=== PATIENT | female | born 1935 | race Caucasian/White ===

== ENCOUNTER 2016-09-03 09:00 | Outpatient (CLI) | payer MEDICARE, OTHER | END 2016-09-03 09:01 | disposition home or self-care (01) | DX: R74.8 Abnormal levels of other serum enzymes (principal) ==

== ENCOUNTER 2017-01-18 10:51 | Outpatient (CLI) | payer MEDICARE, OTHER ==
--- NOTE | 2017-01-19 07:37 | Mammography Report ---
DIGITAL BILATERAL DIAGNOSTIC MAMMOGRAM: 01/18/2017 CLINICAL HISTORY: An 81-year-old female who has a personal history of left breast cancer in 2011. P atient had a left lumpectomy, radiation, and chemotherapy. Patient does not have a family history of breast cancer. COMPARISON: 07/07/2009, 07/08/2010, 07/07/2011, 07/19/2011, 07/28/2011, 03/10/2012, 09/15/2012, 03/04, 09/10/2013, 12/19/2014, 12/29/2015 TECHNIQUE: Craniocaudad and oblique lateral views of each breast were obtained with Moped Full Fie ld digital mammography. A mediolateral view of the left breast was done to compliment the exam. Als o, bilateral axillary exaggerated craniocaudad views were obtained. FINDINGS: Mildly heterogeneously dense breasts are noted bilaterally. Multiple surgical clips are n oted in the upper outer quadrant of the left breast related to patient's known left lumpectomy. Ther e is a small metallic marker seen in the 2 o'clock position of the anterior aspect of the left breast related to a minimally invasive biopsy. Extensive vascular calcification is noted in the breast. No significant clusters of calcification are seen. No significant masses are noted. No significant change is seen as compared to recent mammograms. IMPRESSION: 1. PAST HISTORY OF LEFT LUMPECTOMY WITH AXILLARY NODE DISSECTION. 2. BREASTS APPEAR RADIOGRAPHICALLY BENIGN. BIRADS CATEGORY 2 - BENIGN. RECOMMENDATIONS: Annual bilateral screening mammography. COMMENT: Patient was given a written form indicating that the present exam showed no significant abn ormality. STANDARD QUALIFYING STATEMENTS 1. This examination was reviewed with the aid of Computer-Aided Detection (CAD). 2. A negative or benign imaging report should not delay biopsy if clinically suspicious findings are present. Consider surgical consultation if warranted. More than 5% of cancers are not identified by i maging. 3. Dense breasts may obscure an underlying neoplasm. 14:9:35 JOB #: [id number] EXT JOB #:[id number]
== END 2017-01-18 10:52 | disposition home or self-care (01) ==
LOC: DI 10:51
PROVIDERS: ATTEND Internal Medicine Hematology & Oncology
DX: C50.912 Malignant neoplasm of unspecified site of left female breast (principal); Z80.3 Family history of malignant neoplasm of breast
CPT/HCPCS: 77066

== ENCOUNTER 2018-08-29 14:59 | Outpatient (CLI) | payer MEDICARE, OTHER ==
--- NOTE | 2018-08-30 09:04 | Mammography Report ---
Reason: SCREENING MAMMO Procedure Date: 08/29/2018 Accession Number: [id number] / [id number] Procedure: MARLA - Screening Mammo w/Florentino CPT Code: FULL RESULT: EXAM: Screening Mammo w/Florentino DATE: 08/29/2018 3:42 PM CLINICAL HISTORY: Screening encounter. Personal history of left breast cancer status post lumpectomy and radiation in 2011. TECHNIQUE: Bilateral CC and MLO views were obtained. COMPARISON: None FINDINGS: The breasts demonstrate heterogeneously dense fibroglandular parenchyma bilaterally. Posttreatment changes are stable in the left breast. There are typically benign vascular calcifications. No suspicious masses, clustered microcalcifications, or regions of architectural distortion are identified. IMPRESSION: Benign findings RECOMMENDATION: Routine annual screening unless otherwise clinically indicated. BIRADS CATEGORY 2: Benign findings STANDARD QUALIFYING STATEMENTS: 1. This examination was not reviewed with the aid of Computer-Aided Detection (CAD). 2. A negative or benign imaging report should not delay biopsy if clinically suspicious findings are present. Consider surgical consultation if warrented. More than 5% of cancers are not identified by imaging. 3. Dense breasts may obscure an underlying neoplasm. 4. This examination was reviewed with the aid of 3D breast imaging (tomosynthesis).
== END 2018-08-29 15:00 | disposition home or self-care (01) ==
LOC: DI 14:59
PROVIDERS: ATTEND Family Medicine
DX: Z12.31 Encounter for screening mammogram for malignant neoplasm of breast (principal); Z85.3 Personal history of malignant neoplasm of breast
CPT/HCPCS: 77063; 77067

== ENCOUNTER 2018-09-11 21:02 | Outpatient (CLI) | payer MEDICARE, OTHER ==
--- NOTE | 2018-09-12 00:56 | Ultrasound Report ---
Reason: OTHER SPECIFIED DISEASES OF PANCREAS, ABN WEIGHT L Procedure Date: 09/11/2018 Accession Number: [id number] / [id number] Procedure: US - Abdomen Complete CPT Code: FULL RESULT: EXAM: ABDOMEN ULTRASOUND EXAM DATE: 09/11/2018 09:08 PM. CLINICAL HISTORY: OTHER SPECIFIED DISEASES OF PANCREAS, ABN WEIGHT L. COMPARISON: ABDOMEN COMPLETE 09/03/2016 9:31 AM. TECHNIQUE: Real-time scanning was performed with static images obtained. FINDINGS: Liver: 2 cm left lobe cyst. No solid lesion. The liver measures 12 cm. Main portal vein flow: Hepatopetal. Gallbladder: Normal. No stones, wall thickening, or sonographic Hamilton's sign. Biliary System: Common bile duct measures 5 mm. No intrahepatic or extrahepatic ductal dilatation. Pancreas: Predominantly obscured by bowel gas. Kidneys: Right: 9.5 cm longitudinally. 2.4 cm cortical cyst. No solid renal lesion. No hydronephrosis. Left: 9.3 cm longitudinally. Nonobstructing 6 mm calculus, stable. No solid renal lesion. Spleen: 7.6 cm. Normal in size and echotexture. Aorta and Inferior Vena Cava: Unremarkable. Other: None. IMPRESSION: No significant interval change. Incidental hepatic and renal cysts. Nonobstructing left renal calculus. RADIA
== END 2018-09-11 21:03 | disposition home or self-care (01) ==
LOC: DI 21:02
PROVIDERS: ATTEND Family Medicine
DX: N20.0 Calculus of kidney (principal); R74.8 Abnormal levels of other serum enzymes; R63.4 Abnormal weight loss; K86.89 Other specified diseases of pancreas
CPT/HCPCS: 76700

== ENCOUNTER 2019-05-04 15:40 | Emergency (ER) | payer MEDICARE, OTHER ==
--- NOTE | 2019-05-04 16:35 | ED Physician Documentation ---
History of Present Illness - Stated complaint Stated Complaint: RT LEG AND HIP JOINT PAIN - Chief complaint Chief Complaint: Ext Problem - Additonal information Additional information: This is an 83-year-old female with a history of dementia and osteoporosis who presents with right hip pain and pelvis pain. She is a poor memory and she does not remember falling but cannot say for sure. She typically is independently ambulatory. She noticed some pain this morning and she the pain is located over the lateral side of her hip and radiates towards the groin. She has had progressive difficulty walking on until the day. She denies any fever, back pain, head pain. Review of Systems Constitutional: denies: Fever Cardiac: denies: Chest pain / pressure Respiratory: denies: Dyspnea GI: denies: Abdominal Pain : denies: Dysuria Skin: denies: Rash Musculoskeletal: reports: Extremity pain, Joint pain PD PAST MEDICAL HISTORY - Past Medical History Cardiovascular: Hypertension, High cholesterol Musculoskeletal: Osteoporosis - Past Surgical History Past Surgical History: Yes General: Appendectomy - Present Medications Home Medications: Ambulatory Orders Medication Instructions Recorded Confirmed Calcium [Calcio Calvin] 500 mg PO DAILY 01/06/13 12/08/16 Lisinopril [Prinivil] 5 mg PO DAILY 01/06/13 12/08/16 Lovastatin 10 mg PO DAILY 01/06/13 12/08/16 Ascorbate Calcium [Vitamin C] 500 mg PO DAILY 04/02/13 12/08/16 Glucosamine HCl/Vitamin D3 1 each PO DAILY 04/02/13 12/08/16 [Glucosamine Plus Vitamin D Tab] Letrozole 2.5 mg PO DAILY 04/02/13 12/08/16 Memantine HCl [Namenda] 10 mg PO DAILY 04/02/13 12/08/16 Multivit-Min/FA/Lycopene/Lut 1 each PO DAILY 04/02/13 12/08/16 [Centrum Silver Tablet] - Allergies Allergies/Adverse Reactions: Allergies Allergy/AdvReac Type Severity Reaction Status Date / Time seafood Allergy Rash Uncoded 05/04/19 15:49 - Social History Does the pt smoke?: No Smoking Status: Never smoker Does the pt drink ETOH?: Yes Does the pt have substance abuse?: No - Immunizations Immunizations are current?: Yes - POLST Patient has POLST: No PD ED PE NORMAL - Vitals Vital signs reviewed: Yes - General General: No acute distress - HEENT HEENT: Atraumatic - Neck Neck: Supple, no meningeal sign - Cardiac Cardiac: RRR - Respiratory Respiratory: No respiratory distress - Abdomen Abdomen: Soft, Non tender, Non distended - Extremities Extremities: Other (No gross deformity, patient is tender over the greater troc hanter as well as the proximal femur. Range of motion of the right hip causes pain. Distal strength, pulses, and sensation are intact. Leg is warm and well- perfused.) - Neuro Neuro: Other (Awake, alert, conversant, able to tell me his some history, but her memory is fairly poor.) - Psych Psych: Normal mood, Normal affect Results - Vitals Vitals: Oxygen O2 Source Room air - Labs Labs: Laboratory Tests 05/04/19 05/04/19 05/04/19 16:55 16:55 16:55 WBC 8.8 RBC 3.97 L Hgb 12.5 Hct 38.1 MCV 96.0 MCH 31.5 H MCHC 32.8 RDW 13.1 Plt Count 356 MPV 9.7 Neut # (Auto) 5.9 Lymph # (Auto) 1.6 [place] # (Auto) 0.8 Eos # (Auto) 0.3 Baso # (Auto) 0.1 Absolute Nucleated RBC 0.00 Nucleated RBC % 0.0 PT 11.8 INR 1.0 Sodium 140 Potassium 4.1 Chloride 103 Carbon Dioxide 27 Anion Gap 10.0 BUN 34 H Creatinine 1.8 H Estimated GFR (MDRD) 27 L Glucose 124 H Calcium 9.1 Total Bilirubin 0.8 AST 23 ALT 14 Alkaline Phosphatase 59 Total Protein 7.9 Albumin 4.2 Globulin 3.7 Albumin/Globulin Ratio 1.1 Lipase 56 H - Rads (name of study) US RLE Radiology: Other CT pelvis WO Radiology: Other (No fracture. Osteopenia) XR knee Radiology: Other (No fracture) PD MEDICAL DECISION MAKING - ED course Complexity details: considered differential (fracture, contusion, arthritis, ischemia, dislocation) ED course: Pt's initial presentation most concerning for fracture. CT of the pelvis and XR of the knee show no fracture. DVT study negative. Leg is warm, well-perfused, and pulses are symmetric. On repeat evaluation she is able to ambulate independently with mild pain in her hip. Labs are notable for creatinine of 1.8, her baseline is in the low 1s. She is able to hydrate PO, denies urinary symptoms, and her pain is clearly in her lower right extremity, she has no abdominal pain or tenderness. No signs of rhabdomyolysis on exam. Given she is ambulating quite well, I have a low suspicion for occult fracture but discussed that if her pain is worsening or she is unable to ambulate, she needs and MRI. I also discussed the need for adequate hydration and PCP follow up within the week for follow up on her creatinine. Pt and her son agree and she was discharged home. Departure - Departure Disposition: Home, Self Care Clinical Impression: Hip pain Qualifiers: Laterality: right Qualified Code(s): M25.551 - Pain in right hip Condition: Good Follow-Up: Corey Pham MD [Primary Care Provider] - Comments: You were seen today for pain in your right hip and leg. Our scans did not show signs of blood clots, fractures, or other obvious causes of your pain. Occasionally the CT scan will not rock picker on a very small fracture, so if your pain is worsening or you are not able to walk on your leg, you will need an MRI. If you develop any fever, shortness of breath, or other concerning symptoms please return to the emergency department. Otherwise please follow-up with your primary care provider. Your kidney function was a little low today, please make sure you are drinking adequate fluids, and have this rechecked with your primary care provider (Creatinine was 1.8 today). Discharge Date/Time: 05/04/19 22:37
[2019-05-04] MEDS ORDERED: MORPHINE 2 MG/ML CARPUJECT IVP STA ×2 (16:39→18:22)
[2019-05-04] MEDS ORDERED: ONDANSETRON 4 MG/2 ML VIAL IVP STA (16:41)
[2019-05-04 17:10] LABS: BASOPHILS # (AUTO) 0.1 10^3/uL (0.0-0.1); BASOPHILS % (AUTO) 1.5 %; EOSINOPHILS # (AUTO) 0.3 10^3/uL (0.0-0.7); EOSINOPHILS % (AUTO) 3.8 %; HGB - HEMOGLOBIN 12.5 g/dL (12.0-16.0); LYMPHOCYTES # (AUTO) 1.6 10^3/uL (1.5-3.5); LYMPHOCYTES % (AUTO) 18.7 %; MEAN CORPUSCULAR HEMOGLOBIN 31.5 pg (27.0-31.0); MEAN CORPUSCULAR HGB CONC 32.8 g/dL (32.0-36.0); MEAN PLATELET VOLUME 9.7 fL (7.9-10.8); MONOCYTES # (AUTO) 0.8 10^3/uL (0.0-1.0); NEUTROPHILS # (AUTO) 5.9 10^3/uL (1.5-6.6); NEUTROPHILS % (AUTO) 66.5 %; PLT - PLATELET COUNT 356 10^3/uL (130-450); RED BLOOD COUNT 3.97 10^6/uL (4.20-5.40); RED CELL DISTRIBUTION WIDTH 13.1 % (12.0-15.0); WHITE BLOOD COUNT 8.8 x10^3/uL (4.8-10.8)
[2019-05-04 17:19] LABS: PT - PROTHROMBIN TIME 11.8 secs (9.9-12.6)
[2019-05-04 17:25] LABS: ALBUMIN 4.2 g/dL (3.2-5.5); ALBUMIN/GLOBULIN RATIO 1.1 (1.0-2.2); BILIRUBIN,TOTAL 0.8 mg/dL (0.2-1.0); CALCIUM 9.1 mg/dL (8.5-10.3); CREATININE 1.8 mg/dL (0.4-1.0); TOTAL PROTEIN 7.9 g/dL (6.7-8.2)
--- NOTE | 2019-05-04 18:26 | CT Report ---
Reason: R hip and pelvis pain Procedure Date: 05/04/2019 Accession Number: [id number] / [id number] Procedure: CT - PELVIS WO CPT Code: Final Report FULL RESULT: EXAM: CT BONY PELVIS WITHOUT CONTRAST EXAM DATE: 05/04/2019 05:40 PM. CLINICAL HISTORY: Right hip and pelvis pain after ground-level fall. COMPARISON: None. TECHNIQUE: Thin-section axial images were acquired of the pelvis without contrast. Post-processing: Coronal and sagittal reformats. Other: None. In accordance with CT protocol optimization, one or more of the following dose reduction techniques were utilized for this exam: automated exposure control, adjustment of mA and/or KV based on patient size, or use of iterative reconstructive technique. FINDINGS: Bones: No fractures. Facet osteoarthritis is in the lumbar spine. Moderate osteopenia limits evaluation for subtle bony abnormalities. Sacroiliac Joints: No widening, erosions, or sclerosis. Symphysis Pubis: Unremarkable. Right Hip: Moderate osteophyte formation is accompanied by mild medial joint space narrowing. Articular cartilage calcification is present. Left Hip: Moderate osteophyte formation left hip joint is accompanied by mild medial joint space narrowing. Articular cartilage calcification is present. Musculature: Normal. No fatty atrophy. Pelvic Cavity: A 2.2 cm simple cyst is in the right kidney. Arterial calcifications indicate atherosclerosis.. Other: No lymphadenopathy. No free air or free fluid. The other visualized soft tissues are unremarkable. IMPRESSION: 1. Moderate bilateral hip joint osteoarthritis. 2. No acute fractures by radiographs or by CT. Note that osteopenia limits evaluation for trabecular fractures by CT. If the patient cannot ambulate, MRI is recommended to exclude occult fracture. RADIA
--- NOTE | 2019-05-04 20:47 | XRAY Report ---
Reason: R leg pain and swelling Procedure Date: 05/04/2019 Accession Number: [id number] / [id number] Procedure: XR - Knee 3 View RT CPT Code: Final Report FULL RESULT: EXAM: RIGHT KNEE RADIOGRAPHY EXAM DATE: 05/04/2019 08:22 PM. CLINICAL HISTORY: R leg pain and swelling. COMPARISON: KNEE 3 VIEW RT 10/22/2013 8:29 AM. TECHNIQUE: 3 views. FINDINGS: Bones: Normal. No fractures or bone lesions. Joints: Moderate/tricompartmental degenerative changes of right knee joint. A small right knee joint effusion noted. Soft Tissues: Normal. No soft tissue swelling. IMPRESSION: Tricompartmental degenerative changes of right knee joint. No acute displaced fracture or malalignment. RADIA
--- NOTE | 2019-05-04 22:10 | Ultrasound Report ---
Reason: R leg pain and swelling Procedure Date: 05/04/2019 Accession Number: [id number] / [id number] Procedure: US - Duplex Ext Veins Right CPT Code: Final Report FULL RESULT: EXAM: RIGHT LOWER EXTREMITY VENOUS ULTRASOUND EXAM DATE: 05/04/2019 09:44 PM. CLINICAL HISTORY: Leg pain and swelling COMPARISON: None. TECHNIQUE: Real-time sonographic vascular imaging was performed by the ash worker through the lower extremity utilizing both color-flow and Doppler spectral analysis. Multiple financial service representative static images were saved for review. FINDINGS: Common Femoral Vein (CFV): Normal. CFV-GSV Junction: Normal. Profunda Femoral Vein (PFV): Normal. Femoral Vein (FV) Prox: Normal. Femoral Vein (FV) Mid: Normal. Femoral Vein (FV) Dist: Normal. Popliteal Vein: Normal. Posterior Tibial Veins: Visualized portions within normal limits. Peroneal Veins: Visualized portions within normal limits. Other: There is a popliteal fossa region cyst measuring 2.3 x 2.8 x 2.0 cm. IMPRESSION: No evidence for deep venous thrombosis. RADIA
[2019-05-04 22:37] VITALS: BP 160/104
== END 2019-05-04 22:37 | disposition home or self-care (01) ==
LOC: ED 15:40
DX: M25.551 Pain in right hip (principal); I10 Essential (primary) hypertension; E78.00 Pure hypercholesterolemia, unspecified; M81.0 Age-related osteoporosis without current pathological fracture
CPT/HCPCS: 36415; 72192; 80053; 83690; 85025; 85610; 96374; 96376; 99282

== ENCOUNTER 2020-01-20 10:54 | Outpatient (CLI) | payer MEDICARE, OTHER ==
--- NOTE | 2020-01-23 07:07 | XRAY Report ---
PROCEDURE: Knee 3 View RT INDICATIONS: RIGHT KNEE PAIN TECHNIQUE: 3 views of the right knee(s) were acquired. COMPARISON: 05/04/2019, 10/22/2013 FINDINGS: Bones: No fractures or dislocations. No suspicious bony lesions. There is moderate lateral femorotibial joint space narrowing, with associated degenerative change wit h subchondral sclerosis and osteophyte formation. Milder degenerative changes are seen medially. On t he sunrise view, there is moderate lateral patellofemoral joint space narrowing, with associated tomasa deling changes, including spurs along the margins of the patella. Soft tissues: There is a moderate joint effusion. Calcification is seen along the joint line, which i s attributed to meniscal calcification. IMPRESSION: Right knee osteoarthritic degenerative changes are seen, which are overall most prominen t involving the lateral femoral tibial compartment. There is a moderate joint effusion seen. The degenerative changes have progressed over time. Reviewed by: Cezar Lehman MD on 01/20/2020 10:46 AM VIKAS Approved by: Cezar Lehman MD on 01/20/2020 10:46 AM VIKAS Station ID: [id number]
== END 2020-01-20 10:55 | disposition home or self-care (01) ==
LOC: DI 10:54
PROVIDERS: ATTEND Family Medicine
DX: M17.11 Unilateral primary osteoarthritis, right knee (principal)

== ENCOUNTER 2020-02-21 15:51 | Outpatient (CLI) | payer MEDICARE, OTHER | END 2020-02-21 15:52 | disposition critical access hospital (66) | LOC: EMS 15:51 | PROVIDERS: ATTEND Surgery | DX: R45.1 Restlessness and agitation (principal) | CPT/HCPCS: A0425; A0429 ==

== ENCOUNTER 2021-02-05 07:00 | Outpatient (CLI) | payer MEDICARE, OTHER ==
--- NOTE | 2021-02-05 15:13 | XRAY Report ---
PROCEDURE: Knee 4 View RT INDICATIONS: KNEE PAIN, RIGHT TECHNIQUE: 4 views of the right knee were acquired. COMPARISON: Right knee radiographs 01/20/2020. FINDINGS: Bones: No acute fractures or dislocations. No suspicious bony lesions. Severe joint space narrowin g at the lateral femorotibial compartments with subchondral sclerosis and marginal osteophyte formati on. Mild to moderate joint space narrowing is seen in the anterior compartment. Soft tissues: Small to moderate joint effusion. No suspicious soft tissue calcifications. Atheroscl erotic vascular calcifications are present. IMPRESSION: Severe osteoarthrosis of the right lateral femorotibial compartment. Small to moderate r ight knee effusion. Reviewed by: Alex Martinez MD on 02/05/2021 3:12 PM PDT Approved by: Alex Martinez MD on 02/05/2021 3:12 PM PDT Station ID: [id number]
== END 2021-02-05 23:59 | disposition home or self-care (01) ==
LOC: DI.N 07:00
PROVIDERS: ATTEND Orthopaedic Surgery
DX: M17.11 Unilateral primary osteoarthritis, right knee (principal); M25.461 Effusion, right knee

== ENCOUNTER 2022-11-09 08:09 | Emergency (ER) | payer MEDICARE, OTHER ==
--- NOTE | 2022-11-09 08:43 | ED Physician Documentation ---
History of Present Illness - Stated complaint Stated Complaint: ALOC/FOUND DOWN - Chief complaint Chief Complaint: Neuro - Additonal information Additional information: Patient 87-year-old female with known history of dementia coming from [facility]. Report per EMS as patient was noted to be in her bed at 07 100, found on the side of her bed at 07 15. Staff reported decreased level of awareness. Patient known history of dementia. At this time alert and orientated to self only. Further history limited by her dementia. EMS did report that the family consented for an ED evaluation. Review of Systems Unable to obtain: Dementia PD PAST MEDICAL HISTORY - Past Medical History Cardiovascular: Hypertension, High cholesterol Neuro: Dementia Musculoskeletal: Osteoporosis - Past Surgical History Past Surgical History: Yes General: Appendectomy - Present Medications Home Medications: Ambulatory Orders Medication Instructions Recorded Confirmed Memantine HCl [Namenda] 5 mg PO DAILY 04/02/13 11/09/22 Acetaminophen [Tylenol] 1,000 mg PO TID 11/09/22 11/09/22 Albuterol Sulf [Ventolin Hfa 2 puffs INH Q4HR PRN 11/09/22 11/09/22 Inhaler] Cetirizine [ZyrTEC] 10 mg PO DAILY PRN 11/09/22 11/09/22 Cholecalciferol (Vitamin D3) 50 mcg PO DAILY 11/09/22 11/09/22 [Vitamin D3] Cholestyramine [Questran] 4 gm PO DAILY PRN 11/09/22 11/09/22 Docusate Sodium [Dok] 50 mg PO DAILY 11/09/22 11/09/22 Hydrocortisone 1% Cream 1 applic TOP BID PRN 11/09/22 11/09/22 [Hydrocortisone] Magnesium Hydroxide [Milk of 2,400 mg PO QD PRN 11/09/22 11/09/22 Magnesia] Meloxicam [Mobic] 7.5 mg PO DAILY 11/09/22 11/09/22 QUEtiapine [SEROquel] 25 mg ORAL BID PRN 11/09/22 11/09/22 QUEtiapine [SEROquel] 50 mg PO DAILY 11/09/22 11/09/22 Quetiapine Fumarate [Seroquel] 75 mg PO DAILY PM 11/09/22 11/09/22 Rivastigmine [Exelon 13.3MG] 1 each TD DAILY 11/09/22 11/09/22 Senna [Senokot] 8.6 mg PO DAILY 11/09/22 11/09/22 amLODIPine [Norvasc] 5 mg PO DAILY 11/09/22 11/09/22 - Allergies Allergies/Adverse Reactions: Allergies Allergy/AdvReac Type Severity Reaction Status Date / Time seafood Allergy Rash Uncoded 11/09/22 08:15 - Social History Does the pt smoke?: No Smoking Status: Never smoker Does the pt drink ETOH?: Yes Does the pt have substance abuse?: No - Immunizations Immunizations are current?: Yes - POLST Patient has POLST: No PD ED PE NORMAL - Vitals Vital signs reviewed: Yes - General General: Other (Alert to self only. Elderly, frail.) - HEENT HEENT: Atraumatic, PERRL, EOMI, Ears normal - Neck Neck: No adenopathy - Cardiac Cardiac: RRR - Respiratory Respiratory: No respiratory distress - Abdomen Abdomen: Soft, Non tender - Female Female : Deferred - Rectal Rectal: Deferred - Extremities Extremities: Other (No tenderness to palpation at shoulders, elbows, wrists bilaterally. No tenderness to palpation of the hips. Patient moves lower extremities spontaneously.) - Neuro Neuro: dynamite reclaimer 2-12 intact, No motor deficit, No sensory deficit, Other (Alert to self only. No focal or lateralizing neurologic deficit.) Results - Vitals Vitals: Vital Signs - 24 hr 11/09/22 11/09/22 08:15 08:33 Temperature 36.6 C Heart Rate 65 66 Respiratory 18 16 Rate Blood Pressure 179/69 H 173/56 H O2 Saturation 95 96 Oxygen O2 Source Room air - Labs Labs: Laboratory Tests 11/09/22 11/09/22 11/09/22 08:53 08:53 09:20 WBC 7.1 RBC 3.95 L Hgb 12.7 Hct 38.9 MCV 98.5 MCH 32.2 H MCHC 32.6 RDW 12.9 Plt Count 220 MPV 10.1 Neut # (Auto) 5.3 Lymph # (Auto) 0.8 L [place] # (Auto) 0.7 Eos # (Auto) 0.2 Baso # (Auto) 0.1 Absolute Nucleated RBC 0.00 Nucleated RBC % 0.0 Sodium 140 Potassium 3.5 Chloride 106 Carbon Dioxide 23 Anion Gap 11.0 BUN 28 H Creatinine 1.4 H Estimated GFR (MDRD) 36 L Glucose 93 Calcium 8.9 Total Bilirubin 0.8 AST 29 ALT 18 Alkaline Phosphatase 53 Total Protein 7.3 Albumin 3.9 Globulin 3.4 Albumin/Globulin Ratio 1.1 Lipase 51 Urine Color YELLOW Urine Clarity CLEAR Urine pH 6.0 Ur Specific Crete 1.020 Urine Protein TRACE Urine Glucose (UA) NEGATIVE Urine Ketones TRACE Urine Occult Blood MODERATE H Urine Nitrite NEGATIVE Urine Bilirubin NEGATIVE Urine Urobilinogen 0.2 (NORMAL) Ur Leukocyte Esterase NEGATIVE Urine RBC 6-10 H Urine WBC 0-3 Ur Squamous Epith Cells RARE Squamous Urine Bacteria Few Ur Microscopic Review INDICATED Urine Culture Comments NOT INDICATED PD Medical Decision Making - ED course Complexity details: reviewed results, re-evaluated patient, considered differential, d/w family ED course: Patient 87-year-old female coming from [facility] after unwitnessed fall. Afebrile, hematin stable and arrival to the emergency department. CT head nonacute. Comprehensive labs did not demonstrate any significant anemia, thrombocytopenia. Patient has a creatinine of 1.4 which is consistent with baseline. X-rays of her knee showed some osteoarthritic changes per my interpretation but no acute fracture. Discussed with granddaughter who did arrive a few hours after the patient's arrival to the emergency department. At this time they are amenable for transport back to [facility]. Clear return precautions given. Departure - Departure Disposition: 01 Home, Self Care Clinical Impression: Fall Qualifiers: Encounter type: initial encounter Qualified Code(s): W19.XXXA - Unspecified fall, initial encounter Chronic renal insufficiency Qualifiers: Chronic kidney disease stage: unspecified stage Qualified Code(s): N18.9 - Chronic kidney disease, unspecified Dementia Qualifiers: Dementia type: unspecified type Dementia severity: unspecified severity Dementia behavioral or psychological symptom: without behavioral, psychotic, or mood disturbance or anxiety Qualified Code(s): F03.90 - Unspecified dementia, unspecified severity, without behavioral disturbance, psychotic disturbance, mood disturbance, and anxiety Comments: Thank you for allowing us to care for Leonor today at [facility]. Today in the emergency department she was evaluated for any possible life- threatening medical emergency. The CT scans performed of her head, cervical spine as well as the x-rays of her knee did not show any acute fracture or life-threatening injury. She was noted to have some chronic renal insufficiency however this was consistent with her baseline labs. The rest of her blood work and urine studies were all very reassuring. I would like you to make a follow-up appointment with her primary care doctor soon as possible. If it anytime she has new or worsening symptoms please not hesitate to return.
[2022-11-09 08:58] LABS: BASOPHILS # (AUTO) 0.1 10^3/uL (0.0-0.1); BASOPHILS % (AUTO) 1.5 %; EOSINOPHILS # (AUTO) 0.2 10^3/uL (0.0-0.7); EOSINOPHILS % (AUTO) 2.2 %; HCT - HEMATOCRIT 38.9 % (37.0-47.0); HGB - HEMOGLOBIN 12.7 g/dL (12.0-16.0); LYMPHOCYTES # (AUTO) 0.8 10^3/uL (1.5-3.5); LYMPHOCYTES % (AUTO) 11.3 %; MEAN CORPUSCULAR HEMOGLOBIN 32.2 pg (27.0-31.0); MEAN CORPUSCULAR HGB CONC 32.6 g/dL (32.0-36.0); MEAN CORPUSCULAR VOLUME 98.5 fL (81.0-99.0); MEAN PLATELET VOLUME 10.1 fL (7.9-10.8); MONOCYTES # (AUTO) 0.7 10^3/uL (0.0-1.0); MONOCYTES % (AUTO) 9.8 %; NEUTROPHILS # (AUTO) 5.3 10^3/uL (1.5-6.6); NEUTROPHILS % (AUTO) 74.9 %; PLT - PLATELET COUNT 220 10^3/uL (130-450); RED BLOOD COUNT 3.95 10^6/uL (4.20-5.40); RED CELL DISTRIBUTION WIDTH 12.9 % (12.0-15.0); WHITE BLOOD COUNT 7.1 x10^3/uL (4.8-10.8)
[2022-11-09 09:10] LABS: ALBUMIN 3.9 g/dL (3.2-5.5); ALBUMIN/GLOBULIN RATIO 1.1 (1.0-2.2); BILIRUBIN,TOTAL 0.8 mg/dL (0.2-1.0); CALCIUM 8.9 mg/dL (8.5-10.3); CREATININE 1.4 mg/dL (0.4-1.0); POTASSIUM 3.5 mmol/L (3.5-5.0); TOTAL PROTEIN 7.3 g/dL (6.7-8.2)
[2022-11-09 09:29] LABS: BILIRUBIN,URINE NEGATIVE (NEGATIVE); GLUCOSE, URINE (UA) NEGATIVE (NEGATIVE); KETONES,URINE (UA) TRACE mg/dL (NEGATIVE); LEUKOCYTE ESTERASE, URINE NEGATIVE (NEGATIVE); NITRITE,URINE NEGATIVE (NEGATIVE); OCCULT BLOOD,URINE MODERATE (NEGATIVE); PROTEIN,URINE TRACE mg/dL (NEGATIVE); UROBILINOGEN,URINE 0.2 (NORMAL) E.U./dL (NORMAL)
[2022-11-09 09:31] LABS: CLARITY,URINE CLEAR (CLEAR)
[2022-11-09 09:47] LABS: BACTERIA,URINE Few /HPF (None Seen); SQUAMOUS EPITHELIAL CELL,UR RARE Squamous (<= Few); WBC,URINE 0-3 /HPF (0-5)
--- NOTE | 2022-11-09 10:17 | CT Report ---
PROCEDURE: CT brain without contrast INDICATIONS: Fall, AMS TECHNIQUE: Noncontrast 4.5 mm thick angled axial sections acquired from the foramen magnum to the vertex. For r adiation dose reduction, the following was used: automated exposure control, adjustment of mA and/or kV according to patient size. COMPARISON: None. FINDINGS: Image quality: Excellent. CSF spaces: Basal cisterns are patent. No extra-axial fluid collections. Ventricles are normal in size and shape. Brain: No midline shift. No intracranial masses or hemorrhage. [place]-white matter interface is norm al. Moderate atrophy and multifocal white matter chronic ischemic change noted. Atherosclerotic vasc ular calcification noted in the cavernous segments of both internal carotid arteries as well as the i ntradural vertebral arteries. Skull and face: Calvarium and visualized facial bones are intact, without suspicious lesions. Debris in the right external auditory canal can be correlated with direct visualization Sinuses: Visualized sinuses and mastoids are clear. IMPRESSION: Atrophy and chronic ischemic change without intracranial hemorrhage or mass effect Debris in the right external auditory canal can be correlated with direct visualization Reviewed by: Bubba Groves MD on 11/09/2022 9:15 AM VIKAS Approved by: Bubba Groves MD on 11/09/2022 9:15 AM VIKAS Station ID: [id number]
--- NOTE | 2022-11-09 10:20 | CT Report ---
PROCEDURE: CT cervical spine without contrast INDICATIONS: Fall, AMS TECHNIQUE: Noncontrast 3 mm thick sections acquired from the skull base to the T4 level. Sagittal and coronal r eformats were then constructed. For radiation dose reduction, the following was used: automated exp osure control, adjustment of mA and/or kV according to patient size. COMPARISON: None. FINDINGS: Image quality: Excellent. Bones: No fractures or dislocations. Visualized superior ribs are intact. There is an exaggerated lumbar lordosis ankylosis in the upper cervical spine facet joints. There is grade 2 anterior spinal listhesis present at the C7-T1 degenerative disc space narrowing and posterior disc osteophyte comple x are present throughout the exam. Craniovertebral relationships normal. No evidence of fracture. Mil d to moderate central stenosis present at C2-3 Soft tissues: Prevertebral soft tissues are normal in thickness. No paravertebral hematomas. No ap ical pneumothoraces. IMPRESSION: No evidence of fracture or traumatic malalignment. Degenerative disc disease and arthropathy throughout the exam results in degenerative grade 2 anterio r spondylolisthesis at C7-T1 Reviewed by: Bubba Groves MD on 11/09/2022 9:19 AM VIKAS Approved by: Bubba Groves MD on 11/09/2022 9:19 AM VIKAS Station ID: [id number]
--- NOTE | 2022-11-09 10:20 | XRAY Report ---
PROCEDURE: Knee 3 View LT INDICATIONS: pain TECHNIQUE: 3 views of the left knee(s) were acquired. COMPARISON: None. FINDINGS: Bones: No fractures or dislocations. No suspicious bony lesions. Soft tissues: No knee joint effusion. No suspicious soft tissue calcifications or masses. IMPRESSION: No acute fracture. No osseous lesion. If symptoms and/or clinical suspicion for pathology continue, f urther assessment with repeat plain films, or advanced imaging (e.g., CT, MRI, or bone scan) is recom mended for further assessment. Reviewed by: Franklin Humphreys MD on 11/09/2022 10:19 AM PDT Approved by: Franklin Humphreys MD on 11/09/2022 10:19 AM PDT Station ID: [id number]
[2022-11-09] MEDS ORDERED: ACETAMINOPHEN 325 MG TABLET PO STA (11:14)
[2022-11-09 11:41] VITALS: BP 161/72
== END 2022-11-09 11:41 | disposition home or self-care (01) ==
LOC: EDUNIT# → ED 08:09
DX: F03.90 Unspecified dementia, unspecified severity, without behavioral disturbance, psychotic disturbance, mood disturbance, and anxiety (principal); I12.9 Hypertensive chronic kidney disease with stage 1 through stage 4 chronic kidney disease, or unspecified chronic kidney disease; N18.9 Chronic kidney disease, unspecified; W19.XXXA Unspecified fall, initial encounter; Y92.122 Bedroom in nursing home as the place of occurrence of the external cause; E78.00 Pure hypercholesterolemia, unspecified; Z79.899 Other long term (current) drug therapy
CPT/HCPCS: 36415; 80053; 81001; 81003; 83690; 85025; 87086; 99283; 99284

== ENCOUNTER 2023-01-24 20:42 | Outpatient (CLI) | payer MEDICARE, OTHER | END 2023-01-24 23:59 | disposition critical access hospital (66) | LOC: EMS 20:42 | DX: Z04.3 Encounter for examination and observation following other accident (principal); M25.562 Pain in left knee; M79.652 Pain in left thigh; M25.552 Pain in left hip; F03.90 Unspecified dementia, unspecified severity, without behavioral disturbance, psychotic disturbance, mood disturbance, and anxiety | CPT/HCPCS: A0425; A0429 ==

== ENCOUNTER 2023-01-24 20:59 | Emergency (ER) | payer MEDICARE, OTHER ==
--- NOTE | 2023-01-24 21:19 | ED Physician Documentation ---
PD HPI LOWER EXT INJURY - Stated complaint Stated Complaint: GLF - Chief complaint Chief Complaint: Trauma Ext - History obtained from History obtained from: EMS - History of Present Illness PD HPI LOW EXT INJURY LOCATION: Left, Hip Improved by: Rest Worsened by: Moving, Palpating Associated symptoms: No: Swelling Contributing factors: No: Anticoagulated - Additional information Additional information: Patient is an 87-year-old female with a history of dementia, lives at a memory care facility. Patient is DNR. She had a ground-level fall that was witnessed by [facility] staff. She fell onto her left hip and has been unable to bear weight. Worse with movement, nothing makes it better. Patient unable to give any history. There was no head strike per the staff at her [facility] and per EMS. Patient is not on blood thinners. Review of Systems Unable to obtain: Dementia PD PAST MEDICAL HISTORY - Past Medical History Cardiovascular: Hypertension, High cholesterol Neuro: Dementia Endocrine/Autoimmune: None HEENT: None Musculoskeletal: Osteoporosis - Past Surgical History Past Surgical History: Yes General: Appendectomy - Present Medications Home Medications: Ambulatory Orders Medication Instructions Recorded Confirmed Memantine HCl [Namenda] 5 mg PO DAILY 04/02/13 11/09/22 Acetaminophen [Tylenol] 1,000 mg PO TID 11/09/22 11/09/22 Albuterol Sulf [Ventolin Hfa 2 puffs INH Q4HR PRN 11/09/22 11/09/22 Inhaler] Cetirizine [ZyrTEC] 10 mg PO DAILY PRN 11/09/22 11/09/22 Cholecalciferol (Vitamin D3) 50 mcg PO DAILY 11/09/22 11/09/22 [Vitamin D3] Cholestyramine [Questran] 4 gm PO DAILY PRN 11/09/22 11/09/22 Docusate Sodium [Dok] 50 mg PO DAILY 11/09/22 11/09/22 Hydrocortisone 1% Cream 1 applic TOP BID PRN 11/09/22 11/09/22 [Hydrocortisone] Magnesium Hydroxide [Milk of 2,400 mg PO QD PRN 11/09/22 11/09/22 Magnesia] Meloxicam [Mobic] 7.5 mg PO DAILY 11/09/22 11/09/22 QUEtiapine [SEROquel] 25 mg ORAL BID PRN 11/09/22 11/09/22 QUEtiapine [SEROquel] 50 mg PO DAILY 11/09/22 11/09/22 Quetiapine Fumarate [Seroquel] 75 mg PO DAILY PM 11/09/22 11/09/22 Rivastigmine [Exelon 13.3MG] 1 each TD DAILY 11/09/22 11/09/22 Senna [Senokot] 8.6 mg PO DAILY 11/09/22 11/09/22 amLODIPine [Norvasc] 5 mg PO DAILY 11/09/22 11/09/22 - Allergies Allergies/Adverse Reactions: Allergies Allergy/AdvReac Type Severity Reaction Status Date / Time seafood Allergy Rash Uncoded 01/24/23 21:05 - Social History Does the pt smoke?: No Smoking Status: Never smoker Does the pt drink ETOH?: Yes Does the pt have substance abuse?: No - Immunizations Immunizations are current?: Yes - POLST Patient has POLST: No PD ED PE NORMAL - General General: No acute distress, Well developed/nourished, Other (Alert, oriented to person only) - HEENT HEENT: Atraumatic (No scalp hematomas, no abrasions.), PERRL, Moist mucous membranes, Pharynx benign - Neck Neck: Supple, no meningeal sign, No bony TTP - Cardiac Cardiac: RRR, Strong equal pulses - Respiratory Respiratory: No respiratory distress, Clear bilaterally - Abdomen Abdomen: Soft, Non tender, Non distended - Back Back: No spinal TTP - Derm Derm: Warm and dry - Extremities Extremities: Other - Neuro Neuro: Other (Alert, pleasant) - Free text exam Free text exam: Full range of motion of the right hip without pain. Left hip has a very limited range of motion before patient cries in pain. There is also tenderness to palpation near the greater trochanter of the left hip. There is no gross deformity. Neurovascular intact, brisk cap refill. Otherwise normal exam of the B LE Results - Vitals Vitals: Vital Signs - 24 hr 01/24/23 21:05 Temperature 36.5 C Heart Rate 80 Respiratory 16 Rate Blood Pressure 160/84 H O2 Saturation 98 Oxygen O2 Source Room air - Rads (name of study) L hip xray Relevant Findings:: EMP independent interpretation of test PD Medical Decision Making - ED course Complexity details: reviewed results, re-evaluated patient, considered differential ED course: 87-year-old female status post a witnessed ground-level fall, left hip x-ray shows a possible impacted hip fracture on my wet read. A CT of the left hip was ordered. Patient is signed out to Dr. Gonzales awaiting CT scan of the left hip. Disposition will be determined based on the CT scan and the patient's ability to walk. This document was made in part using voice recognition software. While efforts are made to proofread this document, sound alike and grammatical errors may occur. Departure - Departure Clinical Impression: Hip pain, left Fall Qualifiers: Encounter type: initial encounter Qualified Code(s): W19.XXXA - Unspecified fall, initial encounter Dementia Qualifiers: Dementia type: unspecified type Dementia severity: unspecified severity Dementia behavioral or psychological symptom: without behavioral, psychotic, or mood disturbance or anxiety Qualified Code(s): F03.90 - Unspecified dementia, unspecified severity, without behavioral disturbance, psychotic disturbance, mood disturbance, and anxiety Condition: Stable Forms: PCP List
--- NOTE | 2023-01-24 22:44 | XRAY Report ---
PROCEDURE: Pelvis 1 View INDICATIONS: fall, hip pain TECHNIQUE: Single view of the pelvis acquired. COMPARISON: None. FINDINGS: Bones: There are mildly displaced fractures of the left superior and inferior pubic rami. There is a lso a suspected fracture through the left sacral ala. No suspicious bony lesions. Soft tissues: Visualized bowel gas pattern is normal. No suspicious soft tissue calcifications. IMPRESSION: 1. Mildly displaced fractures of the left superior and inferior pubic rami as well as the left sacral ala. Reviewed by: Joseph Tena MD on 01/24/2023 10:43 PM PDT Approved by: Joseph Tena MD on 01/24/2023 10:43 PM PDT Station ID: [id number]
--- NOTE | 2023-01-24 23:36 | CT Report ---
PROCEDURE: LOWER EXTREMITY WO - LT INDICATIONS: fall, L hip pain TECHNIQUE: Noncontrast 3-mm axial sections acquired from the distal tibial shaft to the talar dome, with coronal and sagittal reformats. For radiation dose reduction, the following was used: automated exposure c ontrol, adjustment of mA and/or kV according to patient size. COMPARISON: Pelvic x-ray 01/24/2023. FINDINGS: Image quality: There is motion artifact limiting evaluation. Bones: There is a comminuted fracture of the left superior pubic ramus extending to the pubic symphy sis. A mildly displaced fracture of the left inferior pubic ramus is also present. There are mildly d isplaced fractures of the left sacral ala extending to the sacroiliac joint. There is moderate degene ration of the hip joints bilaterally. There are degenerative changes within the visualized lower lumb ar spine including severe degenerative disc disease at L5-S1. Moderate facet arthropathy within the l ower lumbar spine. There is anterolisthesis of L4 and L5 measuring approximately 0.6 cm. Soft tissues: There is asymmetric enlargement of the left adductor compartment and left pelvic sidew all musculature compatible with intramuscular hematomas. A small amount of extraperitoneal hematoma i s also demonstrated within the pelvis anteriorly in the space of Retzius. No intraperitoneal free flu id in the visualized pelvis. Impression: 1. Fractures of the left superior and inferior pubic rami as well as the left sacral ala as described . Reviewed by: Joseph Espinal MD on 01/24/2023 11:34 PM PDT Approved by: Joseph Espinal MD on 01/24/2023 11:34 PM PDT Station ID: [id number]
[2023-01-25 00:26] VITALS: BP 140/115
== END 2023-01-25 00:54 | disposition home or self-care (01) ==
LOC: EDUNIT# → ED 20:59
DX: M25.552 Pain in left hip (principal); W18.30XA Fall on same level, unspecified, initial encounter; Y92.129 Unspecified place in nursing home as the place of occurrence of the external cause; F03.90 Unspecified dementia, unspecified severity, without behavioral disturbance, psychotic disturbance, mood disturbance, and anxiety; I10 Essential (primary) hypertension; E78.00 Pure hypercholesterolemia, unspecified; Z79.899 Other long term (current) drug therapy; Z66 Do not resuscitate
CPT/HCPCS: 99283; 99284

== ENCOUNTER 2023-01-25 00:55 | Outpatient (CLI) | payer MEDICARE, OTHER | END 2023-01-25 23:59 | LOC: EMS 00:55 | PROVIDERS: ATTEND Emergency Medicine | DX: S32.9XXA Fracture of unspecified parts of lumbosacral spine and pelvis, initial encounter for closed fracture (principal); W18.30XA Fall on same level, unspecified, initial encounter; R41.0 Disorientation, unspecified; F03.90 Unspecified dementia, unspecified severity, without behavioral disturbance, psychotic disturbance, mood disturbance, and anxiety | CPT/HCPCS: A0425; A0429 ==

== ENCOUNTER 2023-01-31 09:11 | Outpatient (CLI) | payer MEDICARE, OTHER | END 2023-01-31 23:59 | disposition E | LOC: EMS 09:11 | DX: I46.9 Cardiac arrest, cause unspecified (principal) ==